=== PATIENT | female | born 1960 | race African-American/Black ===

== ENCOUNTER 2017-10-11 18:37 | Inpatient (IN) | payer OTHER ==
[2017-10-11 19:07] VITALS: BMI 27.3
--- NOTE | 2017-10-11 19:07 | PDOC ---
Rapid Medical Evaluation Chief Complaint: Chest Pain Time Seen by Provider: 10/11/17 19:04 Medical Evaluation: Allergies Allergy/AdvReac Type Severity Reaction Status Date / Time No Known Allergies Allergy Verified 10/11/17 19:03 10/11/17 19:04 I have performed a brief in-person evaluation of this patient. The patient presents with a chief complaint of: cough and chest pain, sob since 1pm, hx dm htn Pertinent physical exam findings: VSS, I have ordered the following: ekg, cardiac profile, cbc, comp, ua, influenza, cxr The patient will proceed to the ED for further evaluation.
[2017-10-11 20:16] LABS: EOSINOPHIL 8.8 % (0-4.5); MCH 30.8 pg (25.7-33.7); MCHC 35.2 g/dl (32.0-36.0); MEAN CELL VOLUME 87.5 fl (80-96); MEAN PLT VOLUME 7.1 fl (7.5-11.1); NEUTROPHILS 55.5 % (42.8-82.8); PLATELET COUNT 378 K/MM3 (134-434); RDW 13.9 % (11.6-15.6); WHITE BLOOD COUNT 9.5 K/mm3 (4.0-10.0)
[2017-10-11 20:18] LABS: URINE APPEARANCE CLEAR; URINE BILIRUBIN NEGATIVE (NEGATIVE); URINE BLOOD 1+ (NEGATIVE); URINE COLOR STRAW; URINE GLUCOSE (UA) NEGATIVE (NEGATIVE); URINE KETONE NEGATIVE (NEGATIVE); URINE NITRITE NEGATIVE (NEGATIVE); URINE PROTEIN NEGATIVE (NEGATIVE); URINE UROBILINOGEN NEGATIVE mg/dL (0.2-1.0)
--- NOTE | 2017-10-11 20:32 | PDOC ---
History of Present Illness - General Chief Complaint: Chest Pain Stated Complaint: PCP SENT/CHEST PAIN Time Seen by Provider: 10/11/17 19:04 - History of Present Illness Initial Comments: 10/11/17 20:55 The patient is a 57 year old female with a history of HTN, HLD, DM who presents for admission from her primary care providers office for chest pain and SOB. The patient reports intermittent mid-sternal chest pain with associated SOB over the past few days. She states that over the past 2 weeks, she has also been experiencing cough and nasal congestion as well. She states that she presented to her primary care providers office, Dr. Lee, who sent her to the ED for admission given some concerning EKG findings and no previous cardiac work up. She denies fevers, chills, nausea, vomiting, abdominal pain, or changes with urination or bowel movements. Past History - Past Medical History Allergies/Adverse Reactions: Allergies Allergy/AdvReac Type Severity Reaction Status Date / Time No Known Allergies Allergy Verified 10/11/17 19:03 CVA: No COPD: No Diabetes: Yes HTN: Yes Thyroid Disease: Yes (Hypothyroid) - Immunization History Immunization Up to Date: Yes - Suicide/Smoking/Psychosocial Hx Smoking History: Former smoker Have you smoked in the past 12 months: No If you are a former smoker, when did you quit?: 10/10/17 Information on smoking cessation initiated: No Hx Alcohol Use: No Drug/Substance Use Hx: No Substance Use Type: None Review of Systems - Review of Systems Comments:: 10/11/17 21:09 Constitutional: No fevers, chills, fatigue, malaise HEENT: No Rhinorrhea, nasal congestion, visual changes Cardiovascular: Chest pain. No syncope, palpitations, lightheadedness Respiratory: Cough, SOB. No Hemoptysis, Gastrointestinal: No Abdominal pain, Nausea, Vomiting, Constipation, Diarrhea, Melena Genitourinary: No Dysuria, Frequency, Urgency, Hesitancy, Hematuria, Flank pain Musculoskeletal: No Myalgia, arthralgia Skin: No rashes, bruising, pallor Neurologic: No Headache, Dizziness, Numbness, Weakness, or Tingling Psychiatric: No Hallucinations. No SI or HI *Physical Exam - Vital Signs Last Vital Signs Temp Pulse Resp BP Pulse Ox 98.2 F 59 L 16 136/67 98 10/11/17 19:04 10/11/17 19:04 10/11/17 19:04 10/11/17 19:04 10/11/17 19:04 - Physical Exam Comments: 10/11/17 21:10 General Appearance: Nourished. No Apparent Distress HEENT: EOMI, ELIZABETH. No Pharyngeal Erythema, Tonsillar Exudate, Tonsillar Erythema Neck: No Cervical Lymphadenopathy Respiratory/Chest: Lungs Clear, Normal Breath Sounds. No Crackles, Rales, Rhonchi, Wheezing Cardiovascular: Regular Rhythm, Regular Rate. No Murmur, Gallops, Rubs Gastrointestinal/Abdominal: Normal Bowel Sounds, Soft. No Guarding, Rebound, Tenderness Musculoskeletal: No CVA Tenderness Extremity: Normal Capillary Refill Integumentary: Normal Color, Dry, Warm Neurologic: Fully Oriented, Alert, Normal Mood/Affect, Normal Response, Heart Score/ECG Review #1 ECG reviewed & interpreted by me at: 21:16 (T-wave flattening of v3-v6) General ECG Interpretation: Sinus Rhythm, Normal Rate, Normal Intervals ED Treatment Course - LABORATORY CBC & Chemistry Diagram: 10/11/17 20:00 10/11/17 20:00 - ADDITIONAL ORDERS Additional order review: Laboratory Results 10/11/17 20:00 Urine Color Straw Urine Appearance Clear Urine pH 6.0 Ur Specific [place] 1.005 Urine Protein Negative Urine Glucose (UA) Negative Urine Ketones Negative Urine Blood 1+ H Urine Nitrite Negative Urine Bilirubin Negative Urine Urobilinogen Negative 10/11/17 20:00 RBC 4.59 MCV 87.5 MCHC 35.2 RDW 13.9 MPV 7.1 L Neutrophils % 55.5 Lymphocytes % 29.6 Monocytes % 5.1 Eosinophils % 8.8 H Basophils % 1.0 Medical Decision Making - Medical Decision Making 10/11/17 21:17 The patient is a 57 year old female with a history of HTN, HLD, DM who presents for admission from her primary care providers office for chest pain and SOB. Differential includes but is not limited to: acs, gastritis, pneumonia, infectious, metabolic derangement. Given the patient's EKG, it does not appear that she is experiencing an acute GA. However, she has significant comorbidities warrenting a further work up. We will send a cbc, cmp, troponin, chest plain film, ua to evaluate further. Per Dr. Lee's request, the patient will require tele admission for further evaluation. We will continue to monitor and reassess. 10/11/17 21:42 cbc, cmp, troponin, UA are unremarkable. Chest plain film is unremarkable as read by our radiologist. We discussed the case with Dr. Thomas who accepted the patient for admission. *DC/Admit/Observation/Transfer Diagnosis at time of Disposition: Shortness of breath Chest pain Qualifiers: Chest pain type: unspecified Qualified Code(s): R07.9 - Chest pain, unspecified - Discharge Dispostion Condition at time of disposition: Stable Admit: Yes - Referrals Referrals: Douglas Lee MD [Primary Care Provider] - - Patient Instructions - Post Discharge Activity
[2017-10-11 20:33] LABS: URINE RBC < 1; URINE WBC < 1
[2017-10-11 20:37] LABS: ALBUMIN 3.7 g/dl (3.4-5.0); ANION GAP 6 (8-16); BILIRUBIN,TOTAL 0.4 mg/dL (0.2-1.0); CALCIUM 8.7 mg/dL (8.5-10.1); CO2 26 mmol/L (21-32); CREATININE 0.7 mg/dL (0.55-1.02); GLUCOSE,RANDOM 75 mg/dL (74-106); SGOT/AST 14 U/L (15-37); SGPT/ALT 25 U/L (12-78); TOT PROT 7.7 g/dl (6.4-8.2)
[2017-10-11 20:40] LABS: ALK PHOS 94 U/L (45-117); CPK 168 IU/L (26-192); TROPONIN I < 0.02 ng/ml (0.00-0.05)
--- NOTE | 2017-10-11 21:03 | PDOC ---
Attending Attestation - Resident Resident Name: Rigoberto Connors - ED Attending Attestation I have performed the following: I have examined & evaluated the patient, The case was reviewed & discussed with the resident, I agree w/resident's findings & plan, Exceptions are as noted - HPI HPI: 10/11/17 21:02 57 yo female sent in for admission by Dr Lee for chest pain. she reports having a URI recently. She is a diabetic 10/11/17 22:01 WNWD conversant 57 yo female with nasal congestion HEAD normocephalic neck supplw lungs cta b/l cvs [id number] abd soft,nontender neuro axox3,ambulatory - Physicial Exam PE: 10/11/17 21:57 57-year-old female was referred in by Dr. Lee Admission for chest pain. by Dr Thomas - Medical Decision Making 10/11/17 22:03 ekg does not show acute sichemia -will admit to tele for cardiac w/u, rule SD
[2017-10-11 21:29] LABS: URINE LEUK ESTERASE Negative (NEGATIVE)
[2017-10-11] MEDS ORDERED: ASPIRIN 81 MG CHEWABLE TABLETS PO ONE (22:05)
[2017-10-11] MEDS ORDERED: ACETAMINOPHEN 325 MG TABLET (FP) PO PRN (22:17)
[2017-10-11] MEDS ORDERED: ASPIRIN 81 MG CHEWABLE TABLETS ONE (22:34)
[2017-10-12 06:51] LABS: BASOPHIL 1.2 % (0-2.0); EOSINOPHIL 8.9 % (0-4.5); MEAN CELL VOLUME 88.3 fl (80-96); NEUTROPHILS 53.7 % (42.8-82.8); PLATELET COUNT 345 K/MM3 (134-434); RDW 13.9 % (11.6-15.6); WHITE BLOOD COUNT 9.5 K/mm3 (4.0-10.0)
[2017-10-12 07:21] LABS: ALBUMIN 3.4 g/dl (3.4-5.0); ANION GAP 5 (8-16); BILIRUBIN,TOTAL 0.3 mg/dL (0.2-1.0); CALCIUM 8.4 mg/dL (8.5-10.1); CHOLESTEROL 184 mg/dL (50-200); CO2 28 mmol/L (21-32); CREATININE 0.9 mg/dL (0.55-1.02); GLUCOSE,RANDOM 260 mg/dL (74-106); SGOT/AST 17 U/L (15-37); SGPT/ALT 25 U/L (12-78); TOT PROT 7.2 g/dl (6.4-8.2)
[2017-10-12 07:22] LABS: ALK PHOS 93 U/L (45-117); CPK 137 IU/L (26-192); TROPONIN I < 0.02 ng/ml (0.00-0.05)
--- NOTE | 2017-10-12 08:06 | HP ---
Admitting History and Physical - Admission History of Present Illness: 57 year old female with a history of HTN, HLD, DM who presents for admission from her primary care providers office for chest pain and SOB. The patient reports intermittent mid-sternal chest pain with associated SOB over the past few days. She states that over the past 2 weeks, she has also been experiencing cough and nasal congestion as well. - Past Medical History Cardiovascular: Yes: HTN, Hyperlipdemia Endocrine: Yes: Diabetes Mellitus - Smoking History Smoking history: Former smoker Have you smoked in the past 12 months: No If you are a former smoker, when did you quit?: 10/10/17 - Alcohol/Substance Use Hx Alcohol Use: No Home Medications - Allergies Allergies/Adverse Reactions: Allergies Allergy/AdvReac Type Severity Reaction Status Date / Time No Known Allergies Allergy Verified 10/11/17 19:03 - Home Medications Home Medications: Ambulatory Orders Aspirin [ASA -] 81 mg PO DAILY 10/11/17 Epinephrine [Epipen] 0.3 mg IJ PRN 10/11/17 Insulin Aspart [Novolog] 100 units SQ DAILY 10/11/17 Levothyroxine [Synthroid -] 112 mcg PO DAILY 10/11/17 Simvastatin [Zocor -] 10 mg PO DAILY 10/11/17 Valsartan/Hydrochlorothiazide [Valsartan-Hctz 160-25 mg Tab] 1 each PO DAILY Valsartan/Hydrochlorothiazide [Valsartan-Hctz 160-25 mg Tab] 1 each PO DAILY Review of Systems - Review of Systems Cardiovascular: reports: Chest Pain, Shortness of Breath Respiratory: reports: SOB, SOB on Exertion Genitourinary: reports: No Symptoms Musculoskeletal: reports: No Symptoms Physical Examination Vital Signs: Vital Signs Temperature 98.8 F 10/12/17 05:18 Pulse Rate 92 H 10/12/17 05:18 Respiratory Rate 23 10/12/17 05:18 Blood Pressure 72/51 10/12/17 05:18 O2 Sat by Pulse Oximetry (%) 98 10/12/17 05:18 HENT: Yes: Nasal Congestion Cardiovascular: Yes: Regular Rate and Rhythm Respiratory: Yes: Regular, CTA Bilaterally Gastrointestinal: Yes: Normal Bowel Sounds, Soft Labs: CBC, BMP 10/12/17 06:20 10/12/17 06:20 Imaging - Results X-ray: Report Reviewed Problem List - Problems (1) Chest pain Assessment/Plan: STRESS TEST CARDIO Code(s): R07.9 - CHEST PAIN, UNSPECIFIED Qualifiers: Chest pain type: unspecified Qualified Code(s): R07.9 - Chest pain, unspecified (2) Diabetes Assessment/Plan: BGM ENDO A1C Code(s): E11.9 - TYPE 2 DIABETES MELLITUS WITHOUT COMPLICATIONS (3) Bronchitis Assessment/Plan: IV ABX Code(s): J40 - BRONCHITIS, NOT SPECIFIED ACUTE OR CHRONIC (4) Shortness of breath Code(s): R06.02 - SHORTNESS OF BREATH
[2017-10-12] MEDS: INSULIN SLIDING SCALE (NOVOLOG) 1 VIAL SQ SCH ×3 (08:21→22:00)
[2017-10-12] MEDS ORDERED: INSULIN (NOVOLOG) ASPART 100 UNITS/ML 10ML VIAL ONE (08:24)
[2017-10-12] MEDS: CEFTRIAXONE 1 GM in DEXTROSE 5%-WATER - 50 ML IVPB SCH ×2 (08:30)
[2017-10-12] MEDS ORDERED: METOPROLOL SUCCINATE 25 MG TAB.SR.24H (FP) PO SCH (10:00)
--- NOTE | 2017-10-12 13:17 | EKG ---
Test Reason : Blood Pressure : / mmHG Vent. Rate : 058 BPM Atrial Rate : 058 BPM P-R Int : 184 ms QRS Dur : 074 ms QT Int : 436 ms P-R-T Axes : 070 080 047 degrees QTc Int : 428 ms SINUS BRADYCARDIA OTHERWISE NORMAL ECG WHEN COMPARED WITH ECG OF 11-OCT-2017 19:59, NONSPECIFIC T WAVE ABNORMALITY HAS REPLACED INVERTED T WAVES IN INFERIOR LEADS Confirmed by SATISH YODER, ARMINDA ([id number]) on 10/12/2017 1:16:48 PM Referred By: Confirmed By:ARMINDA COVARRUBIAS MD
--- NOTE | 2017-10-12 13:18 | EKG ---
Test Reason : Blood Pressure : / mmHG Vent. Rate : 060 BPM Atrial Rate : 060 BPM P-R Int : 178 ms QRS Dur : 074 ms QT Int : 432 ms P-R-T Axes : 057 051 007 degrees QTc Int : 432 ms NORMAL SINUS RHYTHM CANNOT RULE OUT ANTERIOR INFARCT , AGE UNDETERMINED ABNORMAL ECG NO PREVIOUS ECGS AVAILABLE Confirmed by ARMINDA COVARRUBIAS MD ([id number]) on 10/12/2017 1:18:18 PM Referred By: Confirmed By:ARMINDA COVARRUBIAS MD
[2017-10-12] MEDS: RANOLAZINE E.R. 500 MG TABLET (FP) PO SCH ×3 (15:11→22:02)
[2017-10-12] MEDS: HEPARIN NA (PORCINE) 5,000 UNITS/ML 1ML VIAL SQ SCH ×2 (15:13→22:00)
[2017-10-12] MEDS: ASPIRIN 325 MG ENTERIC COATED TABLET (FP) PO SCH (15:13)
[2017-10-12] MEDS: CEFTRIAXONE 1 G/50 ML PREMIX 50 ML IVPB SCH (15:59)
--- NOTE | 2017-10-12 19:38 | CONSULT ---
Consult Consult Specialty:: endocrine Referred by:: dr.annabi vargas Reason for Consultation:: diabetes mellitus - History of Present Illness Chief Complaint: high sugars and chest pain History of Present Illness: 57 year old female with a history of HTN, HLD, DM who presents for admission from her primary care providers office for chest pain and SOB. The patient reports intermittent mid-sternal chest pain with associated SOB over the past few days. She states that over the past 2 weeks, she has also been coughing short of breath,with chest pressure worse with exertion,non radiating,no fever or chills - History Source History Provided By: Patient - Past Medical History Cardio/Vascular: Yes: HTN, Hyperlipdemia ...LMP: 10/12/17 ...: No Endocrine: Yes: Diabetes Mellitus - Alcohol/Substance Use Hx Alcohol Use: No - Smoking History Smoking history: Former smoker Have you smoked in the past 12 months: No If you are a former smoker, when did you quit?: 10/10/17 Home Medications - Allergies Allergies/Adverse Reactions: Allergies Allergy/AdvReac Type Severity Reaction Status Date / Time No Known Allergies Allergy Verified 10/11/17 19:03 - Home Medications Home Medications: Ambulatory Orders Aspirin [ASA -] 81 mg PO DAILY 10/11/17 Epinephrine [Epipen] 0.3 mg IJ PRN 10/11/17 Insulin Aspart [Novolog] 100 units SQ DAILY 10/11/17 Levothyroxine [Synthroid -] 112 mcg PO DAILY 10/11/17 Simvastatin [Zocor -] 10 mg PO DAILY 10/11/17 Valsartan/Hydrochlorothiazide [Valsartan-Hctz 160-25 mg Tab] 1 each PO DAILY Valsartan/Hydrochlorothiazide [Valsartan-Hctz 160-25 mg Tab] 1 each PO DAILY Review of Systems - Review of Systems Constitutional: reports: Lethargy, Weakness Eyes: reports: No Symptoms HENT: reports: No Symptoms Neck: reports: No Symptoms Cardiovascular: reports: Palpitations, Shortness of Breath Respiratory: reports: Exercise Intolerance, SOB on Exertion Gastrointestinal: reports: Bloating, Constipation Genitourinary: reports: No Symptoms Breasts: reports: No Symptoms Reported Musculoskeletal: reports: Back Pain, Muscle Pain, Muscle Cramps, Muscle Weakness Neurological: reports: Weakness Endocrine: reports: Unexplained Weight Gain Physical Exam Vital Signs: Vital Signs Temperature 98.2 F 10/12/17 17:00 Pulse Rate 61 10/12/17 17:00 Respiratory Rate 18 10/12/17 17:00 Blood Pressure 127/82 10/12/17 17:00 O2 Sat by Pulse Oximetry (%) 98 10/12/17 14:54 Constitutional: Yes: Anxious Eyes: Yes: EOM Intact HENT: Yes: Normocephalic Neck: Yes: Trachea Midline Cardiovascular: Yes: Tachycardia Respiratory: Yes: Cough, SOB, SOB on Exertion Gastrointestinal: Yes: Normal Bowel Sounds ...Rectal Exam: Yes: Deferred Renal/: Yes: WNL Breast(s): Yes: WNL Extremities: Yes: WNL Edema: No Neurological: Yes: Alert, Oriented Labs: CBC, BMP 10/12/17 06:20 10/12/17 06:20 Problem List - Problems (1) Type 1 diabetes mellitus with diabetic neuropathy Code(s): E10.40 - TYPE 1 DIABETES MELLITUS WITH DIABETIC NEUROPATHY, UNSP Assessment/Plan Current Active Problems Bronchitis (Acute) Chest pain (Acute) Diabetes (Acute) Shortness of breath (Acute) iddm hyperglycemiam diabetic neuropathy htn hyperlipidemia Abnormal Lab Results 10/11/17 10/11/17 10/11/17 20:00 20:00 20:00 MPV 7.1 L Eosinophils % 8.8 H Chloride 108 H Anion Gap 6 L BUN 6 L Random Glucose Hemoglobin A1c % Calcium AST 14 L Triglycerides Total LDL Cholesterol HDL Cholesterol Urine Blood 1+ H 10/12/17 10/12/17 10/12/17 06:20 06:20 06:20 MPV 7.0 L Eosinophils % 8.9 H Chloride Anion Gap 5 L BUN Random Glucose 260 H D Hemoglobin A1c % 7.8 H Calcium 8.4 L AST Triglycerides 238 H Total LDL Cholesterol 124 H HDL Cholesterol 32 L Urine Blood Laboratory Results - last 24 hr 10/11/17 10/11/17 10/11/17 20:00 20:00 20:00 WBC 9.5 RBC 4.59 Hgb 14.1 Hct 40.2 MCV 87.5 MCH 30.8 MCHC 35.2 RDW 13.9 Plt Count 378 MPV 7.1 L Neutrophils % 55.5 Lymphocytes % 29.6 Monocytes % 5.1 Eosinophils % 8.8 H Basophils % 1.0 Sodium 140 Potassium 4.1 Chloride 108 H Carbon Dioxide 26 Anion Gap 6 L BUN 6 L Creatinine 0.7 Creat Clearance w eGFR > 60 POC Glucometer Random Glucose 75 Hemoglobin A1c % Calcium 8.7 Total Bilirubin 0.4 AST 14 L ALT 25 Alkaline Phosphatase 94 Creatine Kinase 168 Creatine Kinase Index 1.2 CK-MB (CK-2) 2.179 Troponin I < 0.02 Total Protein 7.7 Albumin 3.7 Triglycerides Cholesterol Total LDL Cholesterol HDL Cholesterol Urine Color Straw Urine Appearance Clear Urine pH 6.0 Ur Specific [place] 1.005 Urine Protein Negative Urine Glucose (UA) Negative Urine Ketones Negative Urine Blood 1+ H Urine Nitrite Negative Urine Bilirubin Negative Urine Urobilinogen Negative Ur Leukocyte Esterase Negative Urine WBC (Auto) < 1 Urine RBC (Auto) < 1 Ur Epithelial Cells Rare 10/12/17 10/12/17 10/12/17 06:20 06:20 06:20 WBC 9.5 RBC 4.51 Hgb 13.5 Hct 39.8 MCV 88.3 MCH 30.0 MCHC 34.0 RDW 13.9 Plt Count 345 MPV 7.0 L Neutrophils % 53.7 Lymphocytes % 29.5 Monocytes % 6.7 Eosinophils % 8.9 H Basophils % 1.2 Sodium 139 Potassium 4.6 Chloride 106 Carbon Dioxide 28 Anion Gap 5 L BUN 13 D Creatinine 0.9 D Creat Clearance w eGFR > 60 POC Glucometer Random Glucose 260 H D Hemoglobin A1c % 7.8 H Calcium 8.4 L Total Bilirubin 0.3 D AST 17 D ALT 25 Alkaline Phosphatase 93 Creatine Kinase 137 Creatine Kinase Index CK-MB (CK-2) Troponin I < 0.02 Total Protein 7.2 Albumin 3.4 Triglycerides 238 H Cholesterol 184 Total LDL Cholesterol 124 H HDL Cholesterol 32 L Urine Color Urine Appearance Urine pH Ur Specific [place] Urine Protein Urine Glucose (UA) Urine Ketones Urine Blood Urine Nitrite Urine Bilirubin Urine Urobilinogen Ur Leukocyte Esterase Urine WBC (Auto) Urine RBC (Auto) Ur Epithelial Cells 10/12/17 15:49 WBC RBC Hgb Hct MCV MCH MCHC RDW Plt Count MPV Neutrophils % Lymphocytes % Monocytes % Eosinophils % Basophils % Sodium Potassium Chloride Carbon Dioxide Anion Gap BUN Creatinine Creat Clearance w eGFR POC Glucometer 366 Random Glucose Hemoglobin A1c % Calcium Total Bilirubin AST ALT Alkaline Phosphatase Creatine Kinase Creatine Kinase Index CK-MB (CK-2) Troponin I Total Protein Albumin Triglycerides Cholesterol Total LDL Cholesterol HDL Cholesterol Urine Color Urine Appearance Urine pH Ur Specific [place] Urine Protein Urine Glucose (UA) Urine Ketones Urine Blood Urine Nitrite Urine Bilirubin Urine Urobilinogen Ur Leukocyte Esterase Urine WBC (Auto) Urine RBC (Auto) Ur Epithelial Cells plan: bgm qid novolog bvia pump insulin pump cardiac work up in order
--- NOTE | 2017-10-12 20:05 | CON.CARD ---
Consult Consult Specialty:: Cardiology Reason for Consultation:: Chest pain - History of Present Illness Chief Complaint: Chest pain History of Present Illness: This is a 57 year old female with a PMH of HTN, HLD, DM. She presented to her primary care office with chest pain and SOB. She stated that she had been experiencing a copugh and nasal congestion. She reported intermittent mid- sternal chest pain associated with SOB over the past several days. An exercise nuclear stress test was performed 10/12/17 show a positive EKG responds, the perfusion imaging revealed a small size, mild intensity anterior wall reversible perfusion defect. An echocardiogram was performed on 10/12/17 and showed EF 79%, TDS Normal LV function, trace MR. - Past Medical History Cardio/Vascular: Yes: HTN, Hyperlipdemia ...LMP: 10/12/17 ...: No Endocrine: Yes: Diabetes Mellitus - Alcohol/Substance Use Hx Alcohol Use: No - Smoking History Smoking history: Former smoker Have you smoked in the past 12 months: No If you are a former smoker, when did you quit?: 10/10/17 Home Medications - Allergies Allergies/Adverse Reactions: Allergies Allergy/AdvReac Type Severity Reaction Status Date / Time No Known Allergies Allergy Verified 10/11/17 19:03 - Home Medications Home Medications: Ambulatory Orders Aspirin [ASA -] 81 mg PO DAILY 10/11/17 Epinephrine [Epipen] 0.3 mg IJ PRN 10/11/17 Insulin Aspart [Novolog] 100 units SQ DAILY 10/11/17 Levothyroxine [Synthroid -] 112 mcg PO DAILY 10/11/17 Simvastatin [Zocor -] 10 mg PO DAILY 10/11/17 Valsartan/Hydrochlorothiazide [Valsartan-Hctz 160-25 mg Tab] 1 each PO DAILY Valsartan/Hydrochlorothiazide [Valsartan-Hctz 160-25 mg Tab] 1 each PO DAILY Review of Systems Unable to obtain ROS, reason: As per HPI Vital Signs: Vital Signs Temperature 98.2 F 10/12/17 17:00 Pulse Rate 61 10/12/17 17:00 Respiratory Rate 18 10/12/17 17:00 Blood Pressure 127/82 10/12/17 17:00 O2 Sat by Pulse Oximetry (%) 98 10/12/17 14:54 Constitutional: Yes: No Distress Neck: Yes: WNL Respiratory: Yes: CTA Bilaterally Gastrointestinal: Yes: Soft Cardiovascular: Yes: Regular Rate and Rhythm (NL S1S2, No MRHG) Extremities: Yes: WNL Neurological: Yes: Alert, Oriented (Grossly non focal) - Other Data Labs, Other Data: CBC, BMP 10/12/17 06:20 10/12/17 06:20 Troponin, BNP 10/11/17 10/12/17 20:00 06:20 Troponin I < 0.02 < 0.02 Troponin, BNP 10/11/17 10/12/17 20:00 06:20 Troponin I < 0.02 < 0.02 Assessment/Plan Chest Pain/CAD Troponin negative Nuclear stress test is equivocal - the stress EKG part was positive, however the perfusion imagining only showed a small, mild anterior wall reversible defect. In reviewing the options with the patient (Cath vs Medical therapy and risk factor modification) the patient strongly preferred Medical therapy and life style modification. -Strongly encourage her to stop smoking -Continue Aspirin 81 mg daily -Would change to a high intensity statin such as Crestor 20 mg PO daily -Would avoid Beta Blockers given slow heart rate -Add Imdur 30 mg PO daily -Would have a low threshold to cath if she continues to experience chest pain -Needs outpatient Cardiology follow up
[2017-10-12] MEDS: ATORVASTATIN CA 40 MG TABLET (FP) PO SCH ×2 (22:00→22:06)
[2017-10-13] MEDS: INSULIN SLIDING SCALE (NOVOLOG) 1 VIAL SQ SCH (06:20)
--- NOTE | 2017-10-13 08:00 | DS ---
Physical Examination Vital Signs: Vital Signs Temperature 97.8 F 10/13/17 06:00 Pulse Rate 50 L 10/13/17 06:00 Respiratory Rate 20 10/13/17 06:00 Blood Pressure 114/57 10/13/17 06:00 O2 Sat by Pulse Oximetry (%) 98 10/12/17 21:00 Labs: CBC, BMP 10/12/17 06:20 10/12/17 06:20 Discharge Summary Reason For Visit: CHEST PAIN SHORTNESS OF BREATH Current Active Problems Bronchitis (Acute) Chest pain (Acute) Diabetes (Acute) Shortness of breath (Acute) Type 1 diabetes mellitus with diabetic neuropathy (Acute) Hospital Course: 57 year old female with a history of HTN, HLD, DM who presents for admission from her primary care providers office for chest pain and SOB. The patient reports intermittent mid-sternal chest pain with associated SOB over the past few days. She states that over the past 2 weeks, she has also been experiencing cough and nasal congestion as well. - Past Medical History Cardiovascular: Yes: HTN, Hyperlipdemia Endocrine: Yes: Diabetes Mellitus - Smoking History Smoking history: Former smoker Have you smoked in the past 12 months: No If you are a former smoker, when did you quit?: 10/10/17 - Problems (1) Chest pain Assessment/Plan: STRESS TEST CARDIO Chest Pain/CAD Troponin negative Nuclear stress test is equivocal - the stress EKG part was positive, however the perfusion imagining only showed a small, mild anterior wall reversible defect. In reviewing the options with the patient (Cath vs Medical therapy and risk factor modification) the patient strongly preferred Medical therapy and life style modification. -Strongly encourage her to stop smoking -Continue Aspirin 81 mg daily -Would change to a high intensity statin such as Crestor 20 mg PO daily -Would avoid Beta Blockers given slow heart rate -Add Imdur 30 mg PO daily -Would have a low threshold to cath if she continues to experience chest pain -Needs outpatient Cardiology follow up I DISCUSSED WITH PATIENT SHE UNDERSTANDS RESULTS AND OPTS FOR MEDICAL MANAGEMENT COMPLIANCE WITH MEDS DISCUSSED Code(s): R07.9 - CHEST PAIN, UNSPECIFIED Qualifiers: Chest pain type: unspecified Qualified Code(s): R07.9 - Chest pain, unspecified (2) Diabetes Assessment/Plan: BGM ENDO A1C Code(s): E11.9 - TYPE 2 DIABETES MELLITUS WITHOUT COMPLICATIONS (3) Bronchitis Assessment/Plan: IV ABX--TO PO Code(s): J40 - BRONCHITIS, NOT SPECIFIED ACUTE OR CHRONIC (4) Shortness of breath Code(s): R06.02 - SHORTNESS OF BREATH ABOVE SMOKING CESSATION Condition: Stable - Instructions Diet, Activity, Other Instructions: BGM Before each meal and at bedtime 1800 calorie diabetic diet with 2 gram sodium Follow up with Primary Care Provider and Dr. Lee Referrals: Douglas Lee MD [Primary Care Provider] - 1 Week Disposition: HOME - Home Medications Comprehensive Discharge Medication List: Ambulatory Orders Epinephrine [Epipen] 0.3 mg IJ PRN 10/11/17 Levothyroxine [Synthroid -] 112 mcg PO DAILY 10/11/17 Simvastatin [Zocor -] 10 mg PO DAILY 10/11/17 Acetaminophen [Tylenol .Regular Strength -] 650 mg PO Q4H PRN tablet 10/13/17 Aspirin Coated [Ecotrin -] 325 mg PO DAILY tablet. 10/13/17 Cefuroxime Axetil [Ceftin -] 250 mg PO BID #14 tablet 10/13/17 Metoprolol Succinate [Toprol XL -] 25 mg PO DAILY #30 tab.sr.24h 10/13/17 Ranolazine [Ranexa -] 500 mg PO BID #60 tab 10/13/17 Valsartan [Diovan] 40 mg PO DAILY #30 tablet 10/13/17
[2017-10-13] MEDS ORDERED: METOPROLOL SUCCINATE 25 MG TAB.SR.24H (FP) PO SCH (08:14)
[2017-10-13 08:17] VITALS: BP 122/74; PULSE 49; TEMP 98.4
[2017-10-13] MEDS: CEFTRIAXONE 1 G/50 ML PREMIX 50 ML IVPB SCH (09:04)
[2017-10-13] MEDS: HEPARIN NA (PORCINE) 5,000 UNITS/ML 1ML VIAL SQ SCH (09:05)
[2017-10-13] MEDS: RANOLAZINE E.R. 500 MG TABLET (FP) PO SCH (09:06)
[2017-10-13] MEDS: ASPIRIN 325 MG ENTERIC COATED TABLET (FP) PO SCH (09:07)
== END 2017-10-13 10:23 | disposition home or self-care (01) | DRG 203 ==
LOC: JER 18:37 → JERBED 21:39 → J4W 10-12 13:17
PROVIDERS: ADMIT Family Medicine; ATTEND Family Medicine
DX: J40 Bronchitis, not specified as acute or chronic (principal); I25.10 Atherosclerotic heart disease of native coronary artery without angina pectoris; R07.9 Chest pain, unspecified; E78.5 Hyperlipidemia, unspecified; R06.02 Shortness of breath; Z87.891 Personal history of nicotine dependence; E10.40 Type 1 diabetes mellitus with diabetic neuropathy, unspecified; E10.65 Type 1 diabetes mellitus with hyperglycemia
CPT/HCPCS: 36415; 71010-TC; 78452-TC; 80053; 80061; 81003; 81015; 82550; 82553; 83036; 83721; 84484; 85025; 87804; 93005; 93010; 93017; 93306-TC; 99285-25; A9502; J1644

== ENCOUNTER 2023-04-15 16:41 | Emergency (ER) | payer OTHER ==
[2023-04-15 16:53] VITALS: BP 173/51; PULSE 77; RESP 17; TEMP 98; BMI 25.8
[2023-04-15] MEDS ORDERED: KETOROLAC TROMETHAMINE 30 MG/1 ML VIAL IM ONE (18:20)
[2023-04-15] MEDS ORDERED: KETOROLAC TROMETHAMINE 30 MG/1 ML VIAL ONE (19:18)
[2023-04-15 20:04] LABS: BASO % 0.8 % (0-2.0); EOS % 2.8 % (0-4.5); HEMATOCRIT 40.6 % (32.4-45.2); HEMOGLOBIN 13.7 GM/dL (10.7-15.3); LYMPH % 23.6 % (8-40); MCH 30.1 pg (25.7-33.7); MCHC 33.7 g/dl (32.0-36.0); MEAN CELL VOLUME 89.2 fl (80-96); MEAN PLT VOLUME 7.5 fl (7.5-11.1); MONO % 5.7 % (3.8-10.2); NEUT % 67.1 % (42.8-82.8); PLATELET COUNT 334 10^3/uL (134-434); RBC 4.55 M/mm3 (3.60-5.2); WHITE BLOOD COUNT 11.2 K/mm3 (4.0-10.0)
[2023-04-15 20:05] LABS: URINE APPEARANCE CLEAR; URINE BILIRUBIN NEGATIVE (NEGATIVE); URINE COLOR YELLOW; URINE GLUCOSE (UA) NEGATIVE (NEGATIVE); URINE KETONE NEGATIVE (NEGATIVE); URINE LEUK ESTERASE NEGATIVE (NEGATIVE); URINE NITRITE NEGATIVE (NEGATIVE); URINE PROTEIN NEGATIVE (NEGATIVE); URINE UROBILINOGEN 0.2 mg/dL (0.2-1.0)
[2023-04-15 20:19] LABS: POTASSIUM 5.1 mmol/L (3.5-5.1)
[2023-04-15 20:24] LABS: ALBUMIN 3.6 g/dl (3.4-5.0); BLOOD UREA NITROGEN 10.4 mg/dL (7-18); CALCIUM 9.3 mg/dL (8.5-10.1)
[2023-04-15 20:25] LABS: MAGNESIUM 2.1 mg/dL (1.8-2.4)
[2023-04-15 20:27] LABS: CREATININE 0.8 mg/dL (0.55-1.3)
[2023-04-15 20:29] LABS: BILIRUBIN,TOTAL 0.6 mg/dL (0.2-1); TOT PROT 7.4 g/dl (6.4-8.2)
[2023-04-15] MEDS ORDERED: AMOX TR/POT CLAV 875MG/125MG TABLETS (FP) PO ONE (22:13)
[2023-04-15] MEDS ORDERED: AMOX TR/POT CLAV 875MG/125MG TABLETS (FP) ONE (22:24)
== END 2023-04-15 22:37 | disposition home or self-care (01) ==
LOC: JER 16:41
DX: R10.32 Left lower quadrant pain (principal); M54.9 Dorsalgia, unspecified; K57.92 Diverticulitis of intestine, part unspecified, without perforation or abscess without bleeding
CPT/HCPCS: 36415; 71046-TC-FY; 74176-TC; 80053; 81003; 83690; 83735; 85025; 87086; 93005; 93010; 99285-25